=== PATIENT | female | born 2000 | race Caucasian/White ===

== ENCOUNTER 2023-06-19 14:58 | Outpatient (REF) | payer OTHER, SELFPAY | END 2023-06-19 14:59 | disposition home or self-care (01) | LOC: NFLDREF 14:58 | PROVIDERS: PCP Nurse Practitioner Women's Health; Referring Provider Nurse Practitioner Women's Health; Visit Provider Physician Assistant | DX: O99.113 Other diseases of the blood and blood-forming organs and certain disorders involving the immune mechanism complicating pregnancy, third trimester (principal); D69.6 Thrombocytopenia, unspecified; O24.419 Gestational diabetes mellitus in pregnancy, unspecified control; Z3A.36 36 weeks gestation of pregnancy | CPT/HCPCS: 76816; 76819; 87340 ==

== ENCOUNTER 2023-06-20 09:44 | Outpatient (CLI) | payer OTHER, SELFPAY | END 2023-06-20 09:45 | disposition home or self-care (01) | PROVIDERS: PCP Nurse Practitioner Women's Health; Visit Provider Physician Assistant | DX: O99.113 Other diseases of the blood and blood-forming organs and certain disorders involving the immune mechanism complicating pregnancy, third trimester (principal); D69.6 Thrombocytopenia, unspecified; Z3A.36 36 weeks gestation of pregnancy | CPT/HCPCS: 82565; 84450; 84460; 84520; 85384; 85610; 85730 ==

== ENCOUNTER 2023-07-07 16:08 | Inpatient (IN) | payer OTHER, SELFPAY ==
[2023-07-07] VITALS (9 sets, daily range): BP systolic 120–123; BP diastolic 75–81; PULSE 72–96; RESP 16; TEMP 36.4–37.2; O2SAT 97–98; BMI 33.3
[2023-07-07 17:49] LABS: Basophils Absolute Auto 0.02 K/uL (0.00-0.30); Basophils Percent Auto 0.4 % (0.0-3.0); Eosinophils Absolute Auto 0.02 K/uL (0.00-0.50); Eosinophils Percent Auto 0.4 % (0.0-7.0); Hematocrit 34.3 % (33.0-51.0); Hemoglobin* 11.5 gm/dL (12.0-16.0); Immature Granulocytes Abs Auto 0.02 K/uL (0.00-0.30); Immature Granulocytes Pct Auto 0.4 %; Lymphocytes Absolute Auto 1.41 K/uL (0.90-2.90); Mean Corpuscular HGB Conc 34 gm/dL (32-36); Mean Corpuscular Hemoglobin 32 pg (26-34); Mean Corpuscular Volume 95 fL (80-100); Monocytes Percent Auto 6.6 % (0.0-11.0); Neutrophils Absolute Auto 3.59 K/uL (1.7-7.0); Neutrophils Percent Auto 66.2 % (42.0-72.0); Platelet Count* 89 K/uL (140-440); RDW Coefficient of Variation % 14.2 % (11.5-15.5); Red Blood Count 3.63 m/uL (4.00-5.20); White Blood Count* 5.42 K/uL (4.50-11.00)
[2023-07-07 17:50] LABS: Slide Review Reflex No
--- NOTE | 2023-07-07 18:45 | PM.OBHPLI ---
OB - H&P: HPI Labor/Induction History of Present Illness Time Seen by Provider: 18:45 Date Seen: 07/07/23 Chief Complaint: The patient is a 23 year old 3 para 2 at 38w6d gestation by LMP, who presents for induction of labor. is complicated by GDMA1, suspected macrosomia, thrombocytopenia, IVF gestation and gestational carrier status. Patient is feeling well today, no acute concerns. Denies regular/painful uterine contractions, vaginal bleeding or leaking of fluids. Endorses that movement. She is otherwise in her normal state of health. Janeht, her , biological father and his parents are all present for induction. Chief complaint: Maternity Narrative: Janeth Sims is a 23 year old female Specific Issues/Plans 1. Transer OB at 34w5d from [place]. H&P updated 07/03/[address] Watkins. 2. Surrogate, IVF , for a male in [place], Hernando Villagomez will be here for delivery Completed pre implantation genetics: boy! Weekly NSTs starting at 36 weeks 3. History of gestational HTN in 1st ASA 81mg Normal pre-E labs at 12 weeks 4. Gestational diabetes History of gestational diabetes in prior x 2, diet controlled. Early glucose screen was elevated at 150. She initiated glucose monitoring q.i.d. at home for 2 weeks and was having normal readings. They were also normal from 20-22 weeks. Repeat screening at 28 weeks was 146. She resumed q.i.d. remainder of the . 05/23/23: 2 elevated fastings and 15 postprandial elevations. Nutrition consult 06/01/202306/08: Did not bring blood sugar log. Reported fastings are all normal. Reported only 2 elevated post prandials in the past week. Encouraged to bring blood sugar log to each visit Growth ultrasound 05/22/2023: EFW 90% Repeat growth ultrasound at 36 weeks: EFW 3390 g or 7 lb 8 oz (92%), BPD 84%, HC 95%, AC 97%, FL 62%, JACQUI 22.3 cm Patient would like to discuss induction at 39 weeks: Scheduling form filled out. IOL scheduled for 07/08/2023, cervical ripening the night prior. 5. Group B strep detected at new OB. Plan for treatment at delivery (per problem list in records, awaiting UC) Per patient: UTI treated at [facility] for test of cure: Group B strep 6. Thrombocytopenia noted at 28 weeks (per problem list). 32 week CBC showed stable platelets at 102,000. Repeat at 36 weeks: 93,000 06/20/23: 95,000. Normal PT/PTT, normal bun/cr/ast/alt. Fibrinogen normal. Peripheral smear: Moderate thrombocytopenia. No platelet clumping. No circulating blasts. pr/cr ratio ordered, not performed Per anesthesia: If platelets remain stable, they will perform epidural if desired. CBC weekly. Plts 86,000 on 07/03/23 7. Varicella nonimmune vaccination 8. Last Pap, unknown. Pap Tdap: 05/02/23 Flu shot: 06/08/23 RSV: 06/08/23 labs 01/04/23: A positive, negative antibody screen, hemoglobin 11.0, platelets 173,000, rubella immune, RPR nonreactive, hep B surface antibody positive, NO hep B surface antigen, HIV negative, gonorrhea and Chlamydia negative, RPR nonreactive, varicella zoster antibody negative, varicella nonimmune UC: [], hep C negative, TSH 1.8 on 11/19/2022. LAC 06/19/23: negative Hep B surfrace antigen Early 1hr gtt: 150 Twenty-eight week labs 05/02/2023: Hemoglobin 11, 1 hour GTT 146 Imagin. First-trimester ultrasound 12/05/22: living IUP 8w 2 d. BOB 07/15/2023 2. FAS US 03/01/23: posterior placenta, no previa. Normal anatomy. EFW 88% 3. Growth US 05/22/23: EFW 90% Meds Home Medications and Allergies Home Medications Medication Instructions Recorded Confirmed Type aspirin 81 mg chewable tablet 81 mg PO QDAY 06/08/23 07/07/23 History docosahexaenoic acid 200 mg 200 mg PO DAILY PRN 06/08/23 07/07/23 History capsule ( DHA) ferrous sulfate 325 mg (65 mg 325 mg PO QDAY 06/08/23 07/07/23 History iron) tablet (Feosol) Allergies Allergy/AdvReac Type Severity Reaction Status Date / Time No Known Drug Allergies Allergy Verified 07/03/23 14:04 OB - H&P: Exam Physical Exam: Vital signs: Temp Pulse BP Pulse Ox 97.8 F 85 123/81 98 07/07/23 16:41 07/07/23 16:41 07/07/23 16:41 07/07/23 17:05 Narrative: General: Alert and oriented, in no acute distress Psych: Appropriate mood and affect Abdomen: Gravid. EFW 3390g by US on 06/19/23. Cervix: 3/60/-3, Figueroa score 6. FHR: Category 1. Baseline 120bpm, moderate variability, accelerations present, no decelerations [place]: Irregular uterine contractions OB - Results Labs Labs: Short CBC 07/07/23 Range/Units 16:21 WBC 5.42 (4.50-11.00) K/uL Hgb 11.5 L (12.0-16.0) gm/dL Hct 34.3 (33.0-51.0) % Plt Count 89 L (140-440) K/uL OB - Problem Based A/P Additional Plan (1) : Status: Acute (2) Conceived by in vitro fertilization: Status: Acute (3) History of gestational hypertension: Problem details: 1st Status: Acute (4) Thrombocytopenia affecting : Status: Acute (5) Gestational diabetes: Status: Acute Plan Admit to labor and delivery for IOL in the setting of IVF gestation, GDMA1, suspected macrosomia and thrombocytopenia - Start IOL with cook catheter, augment with pitocin in AM - GBS positive at new Ob, plan to ampicillin for GBS prophylaxis - Active T/S and repeat CBC on admission - Notify anesthesia of admission and low platelets given possible regional anesthetic
[2023-07-07] MEDS: LACTATED RINGERS 1000 ML 1,000 ML 125 ML IV (19:40)
[2023-07-07] MEDS: AMPICILLIN 2 GM in 0.9 % SODIUM CHLORIDE Mini-bag 100 ML IVPB (19:43)
[2023-07-07] MEDS: AMPICILLIN 1 GM in 0.9 % SODIUM CHLORIDE Mini-bag 100 ML IVPB (23:45)
[2023-07-08] VITALS (34 sets, daily range): BP systolic 115–160; BP diastolic 56–87; PULSE 57–101; RESP 15–16; TEMP 36.4–37; O2SAT 91–100
[2023-07-08] MEDS: AMPICILLIN 1 GM in 0.9 % SODIUM CHLORIDE Mini-bag 100 ML IVPB ×3 (03:39→13:36)
[2023-07-08] MEDS: OXYTOCIN 30 unit/500 ML in NS 30 UNIT/500 ML BAG IVPB (08:19)
--- NOTE | 2023-07-08 09:36 | PM.OBPNL ---
Subjective Time Seen by Provider: 08:00 Date Seen: 07/08/23 Narrative: The patient is comfortable this morning, sitting in bed. Denies painful contractions. Cook catheter was removed at 0334. On ampicillin for GBS prophylaxis. Fasting BS pending. Objective Exam: General appearance: alert, cooperative,no acute distress Abdomen: soft, gravid, nontender : deferred Extremities: no edema, nontender Vital Signs: Last Vital Signs Temp 97.6 F 07/08/23 08:10 Pulse 101 H 07/08/23 08:01 Resp 16 07/08/23 03:28 BP 120/87 07/08/23 08:01 Pulse Ox 98 07/07/23 17:05 Contractions Monitor mode: External Contraction Frequency: 2-9 minutes Contraction pattern: Irregular Contraction intensity: Mild Pitocin Rate (mU/min): 0 Assessment Assessment: induction ongoing Status: Category l Heart Rate Baseline: 130 Pump Service Supervisor Variability: Moderate (6-25) Monitor Accelerations: Present Monitor Decelerations: None Plan Plan: Start pitocin infusion. Amniotomy when appropriate. Check platelets again 30 minutes prior to epidural (per TOURING PRODUCTION MANAGER recommendation).
--- NOTE | 2023-07-08 14:28 | PM.OBPNL ---
Subjective Time Seen by Provider: 14:28 Date Seen: 07/08/23 Narrative: Patient feeling modeate contractions. Objective Vital Signs: Last Vital Signs Temp 97.8 F 07/08/23 13:35 Pulse 68 07/08/23 13:34 Resp 16 07/08/23 03:28 BP 115/68 07/08/23 13:34 Pulse Ox 98 07/07/23 17:05 Pelvic Exam Dilation (cm): 6 Effacement (%): 85 Station: 0 Contractions Monitor mode: External Contraction pattern: Regular Contraction intensity: Moderate Pitocin Rate (mU/min): 9 Assessment Assessment: induction ongoing Station: 0 Amniotic Membrane Status: AROM (clear fluid) Status: Category l Heart Rate Baseline: 130 Monitor Accelerations: Present Monitor Decelerations: None Plan Plan: Amniotomy performed. CBC now. Epidural prn.
[2023-07-08 14:42] LABS: Basophils Absolute Auto 0.02 K/uL (0.00-0.30); Basophils Percent Auto 0.4 % (0.0-3.0); Eosinophils Absolute Auto 0.03 K/uL (0.00-0.50); Eosinophils Percent Auto 0.5 % (0.0-7.0); Hematocrit 38.5 % (33.0-51.0); Hemoglobin* 12.8 gm/dL (12.0-16.0); Immature Granulocytes Abs Auto 0.06 K/uL (0.00-0.30); Immature Granulocytes Pct Auto 1.1 %; Lymphocytes Absolute Auto 1.49 K/uL (0.90-2.90); Lymphocytes Percent Auto 26.3 % (20-44); Mean Corpuscular HGB Conc 33 gm/dL (32-36); Mean Corpuscular Hemoglobin 32 pg (26-34); Mean Corpuscular Volume 96 fL (80-100); Monocytes Percent Auto 6.9 % (0.0-11.0); Neutrophils Absolute Auto 3.67 K/uL (1.7-7.0); Neutrophils Percent Auto 64.8 % (42.0-72.0); Platelet Count* 103 K/uL (140-440); RDW Coefficient of Variation % 14.1 % (11.5-15.5); Red Blood Count 4.03 m/uL (4.00-5.20); White Blood Count* 5.66 K/uL (4.50-11.00)
[2023-07-08 14:58] LABS: Slide Review Reflex No
[2023-07-08] MEDS: ROPIVACAINE 0.2% 100 ml 100 ML 12 MG EPIDURAL (15:46)
[2023-07-08] MEDS: LIDOCAINE 2% (PF) 5 ML VIAL EPIDURAL (15:46)
[2023-07-08] MEDS: ROPIVACAINE 0.2 % PF 10 ML INJ 20 MG EPIDURAL (15:46)
--- NOTE | 2023-07-08 15:53 | PM.ANBPRC ---
[facility] Medical History History of gestational diabetes ?Z86.32 - Personal history of gestational diabetes (ICD-10) Surgical History History of wisdom tooth extraction ?K08.409 - Partial loss of teeth, unspecified cause, unspecified class (ICD-10) Social History Narrative: Occupation: Daycare aid. Marital status: Significant other. Moravian/cultural needs: no. Chemical or radiation exposure: no. Pre- tobacco use: no. Pre- alcohol use: no. Current tobacco use: no. Current alcohol use: no. Recreational drug use: no. Dietary restrictions: no. Blood transfusion acceptable in an emergency: yes. PSYCHOSOCIAL HISTORY: History of depression or currently depressed: no. Current or past physical, emotional, or sexual mistreatment: no. Problems that will make it hard to make it to appointments: no. What is your current living situation?: I presently have a place to live Problems where you live: no known problems In the past 12 months, utilities in danger of being shut off: no In past 12 months, lack of transportation kept you from medical appts, meetings, work, or getting things needed for daily living: no In the past 12 mos, have been you worried that your food would run out before you had money to buy more?: never true In the past 12 mos, the food you bought just didn't last and you didn't have money to buy more?: never true Smoking Status: Never smoker How often does anyone, including family, friends and others, physically hurt you: never How often does anyone, including family, friends and others, insult or talk down to you: never How often does anyone, including family, friends and others, threaten you with harm: never How often does anyone, including family, friends and others, scream or curse at you: never Little interest or pleasure in doing things: not at all Feeling down, depressed, or hopeless: not at all Meds Home Medications and Allergies Home Medications Medication Instructions Recorded Confirmed Type aspirin 81 mg chewable tablet 81 mg PO QDAY 06/08/23 07/07/23 History docosahexaenoic acid 200 mg 200 mg PO DAILY PRN 06/08/23 07/07/23 History capsule ( DHA) ferrous sulfate 325 mg (65 mg 325 mg PO QDAY 06/08/23 07/07/23 History iron) tablet (Feosol) Allergies Allergy/AdvReac Type Severity Reaction Status Date / Time No Known Drug Allergies Allergy Verified 07/03/23 14:04 Results Labs Labs: Laboratory Results - last 24 hr 07/07/23 07/07/23 07/08/23 16:21 17:21 14:35 WBC 5.42 5.66 RBC 3.63 L 4.03 Hgb 11.5 L 12.8 Hct 34.3 38.5 MCV 95 96 MCH 32 32 MCHC 34 33 RDW Coeff of Bell 14.2 14.1 Plt Count 89 L 103 L Neut % (Auto) 66.2 64.8 Lymph % (Auto) 26.0 26.3 Bibb % (Auto) 6.6 6.9 Eos % (Auto) 0.4 0.5 Baso % (Auto) 0.4 0.4 Neut # (Auto) 3.59 3.67 Lymph # (Auto) 1.41 1.49 Bibb # (Auto) 0.40 0.40 Eos # (Auto) 0.02 0.03 Baso # (Auto) 0.02 0.02 Abs Immat Gran (auto) 0.02 0.06 Imm/Tot Granulo (auto) 0.4 1.1 Blood Type A Positive Antibody Screen NEGATIVE Vital Signs Vital Signs: Last Vital Signs Temp 97.8 F 07/08/23 13:35 Pulse 80 07/08/23 15:53 Resp 16 07/08/23 03:28 BP 139/77 07/08/23 15:53 Pulse Ox 100 07/08/23 15:48 Weight: 77.428 kg Height: 152.4 cm Anesthesia Procedures Epidural Insertion Patient Location: OB Start Time: 15:00 Stop Time: 15:54 Start Date: 07/08/23 Stop Date: 07/08/23 Reason for Block: procedure for pain Patient Position: sitting Performed By: Rachid Gray Preanesthetic Checklist: IV checked, risks and benefits discussed, surgical consent, monitors and equipment checked, pre-op evaluation, timeout performed and anesthesia consent Prep: chlorhexidine gluconate Monitoring: blood pressure monitoring, continuous pulse oximetry and heart rate Approach: midline Vertebral Space: lumbar (1-5) Epidural Technique: ELLIOTT air Needle Type: Tuohy needle Injection Technique: continuous catheter Needle gauge: 17 Needle Length (cm): 10 cm Needle Insertion Depth (cm): 7 Catheter Gauge: 19 Catheter Type: multi-orifice Catheter at skin depth (cm): 13 Test Dose Result: negative and lidocaine 1.5% with epinephrine 1 to 200,000
--- NOTE | 2023-07-08 16:56 | W.PM.OBVAGDE ---
OB Procedure Vag Delivery Mother Details Mother Details: The patient is a 23 year-old, 3, Para 2001, admitted on 07/07/23 at 38 6/7 weeks gestation for cervical ripening and induction of labor for GDMA1. GBS positive, received antibiotic prophylaxis, 5 doses prior to delivery. Good blood sugar control during labor. : 3 Para: 2 Weeks Gestation: 39 Admission Date: 07/07/23 Additional Details Amniotic Membrane Status: AROM Amniotic Membrane Rupture Date: 07/08/23 Amniotic Membrane Rupture Time: 14:26 Amniotic Membrane Fluid Description: Clear Analgesia/Anesthesia Type: Epidural Waterbirth: No Pitcoin: Yes Intrapartal Events: Labor Induction Induction Method: Intracervical balloon catheter Delivery augmentation: rupture of membranes and pitocin Labor Onset: 14:26 Complete: 16:22 Pushin:27 Heart: heart tones during second stage were 120 bpm baseline with variable decelerations to 90s. Delivery Details Delivery Date: 07/08/23 Delivery Time: 16:43 Route of delivery: Gender: Male Viability: Alive; Heart Rate Present Position at Delivery: OA Delivery Details: Delivered over intact perineum via spontaneous vaginal delivery. Infant was placed on maternal abdomen.? Cord was clamped and cut after a 60 second delay. Nose and mouth were bulb suctioned.? Infant weight pending. 1 Minute Interval Total Score: 9 5 Minute Interval Total Score: 9 Additional Details Shoulder Dystocia: No Placenta Delivery Time: 16:49 Placental Delivery Description: Spontaneous Procedure Done: Global Blood Loss: 75 Laceration: None Blood Loss Measurement Type: EBL Bakri Used: No Sponge/Need Count Correct: Yes Cord Vessel Description: 3 Vessels Event Summary Status: Mother and were stable after delivery. Disposition: floor
[2023-07-09 00:27] VITALS: BP 114/78; PULSE 64; RESP 15; TEMP 36.6; O2SAT 96
[2023-07-09 04:48] VITALS: BP 116/75; PULSE 61; RESP 17; TEMP 37.1; O2SAT 97
[2023-07-09] MEDS: IBUPROFEN 600 MG TABLET PO (05:28)
[2023-07-09 07:15] LABS: Hemoglobin* 11.8 gm/dL (12.0-16.0)
[2023-07-09 09:14] VITALS: BP 113/75; PULSE 73; RESP 16; TEMP 36.6; O2SAT 97
[2023-07-09] MEDS: ACETAMINOPHEN 500 MG TABLET 1000 MG PO (09:25)
[2023-07-09] MEDS: DOCUSATE SODIUM 100 MG CAPSULE PO (09:25)
--- NOTE | 2023-07-09 11:19 | PM.OBDSVD1 ---
DS: Providers Provider Time Seen by Provider: 11:20 Date Seen: 07/09/23 Date of admission: 07/07/23 16:08 Primary care physician: RUTH Mejia Admitting Clinician: Janeth Walden MD Attending Physician on discharge: Flavia Watkins MD Date of Discharge: 07/09/23 DS: Diagnosis Discharge Diagnosis (1) Normal vaginal delivery: Status: Acute (2) Gestational diabetes: Status: Acute Exam Const: Vital Signs, click to edit/add: Vital Signs - 24 hr 07/08/23 13:34 07/08/23 13:35 07/08/23 15:33 Temperature 97.8 F Pulse Rate 68 Pulse Rate [Pulse Oximeter] Respiratory Rate Blood Pressure 115/68 Blood Pressure [Ri ght Arm] Pulse Oximetry 100 Oxygen Delivery Mt thod 07/08/23 15:38 07/08/23 15:43 07/08/23 15:44 Temperature Pulse Rate Pulse Rate [Pulse Oximeter] Respiratory Rate Blood Pressure Blood Pressure [Ri ght Arm] Pulse Oximetry 100 100 92 Oxygen Delivery Mt thod 07/08/23 15:48 07/08/23 15:49 07/08/23 15:51 Temperature Pulse Rate 83 84 Pulse Rate [Pulse Oximeter] Respiratory Rate Blood Pressure 160/87 H 130/78 Blood Pressure [Ri ght Arm] Pulse Oximetry [facility] 15:53 07/08/23 15:55 07/08/23 15:57 Temperature Pulse Rate 80 85 82 Pulse Rate [Pulse Oximeter] Respiratory Rate Blood Pressure 139/77 124/68 126/67 Blood Pressure [Ri ght Arm] Pulse Oximetry 100 Oxygen Delivery Mt thod 07/08/23 15:58 07/08/23 16:03 07/08/23 16:04 Temperature Pulse Rate 82 Pulse Rate [Pulse Oximeter] Respiratory Rate Blood Pressure 123/77 Blood Pressure [Ri ght Arm] Pulse Oximetry 100 98 Oxygen Delivery Mt thod 07/08/23 16:08 07/08/23 16:13 07/08/23 16:16 Temperature Pulse Rate Pulse Rate [Pulse Oximeter] Respiratory Rate Blood Pressure Blood Pressure [Ri ght Arm] Pulse Oximetry 98 99 91 [facility] 07/08/23 16:18 07/08/23 16:21 07/08/23 16:35 Temperature Pulse Rate 82 75 Pulse Rate [Pulse Oximeter] Respiratory Rate Blood Pressure 125/78 140/64 H Blood Pressure [Ri ght Arm] Pulse Oximetry 95 94 [facility] 07/08/23 16:51 07/08/23 16:53 07/08/23 17:05 Temperature Pulse Rate 62 72 76 Pulse Rate [Pulse Oximeter] Respiratory Rate Blood Pressure 147/72 H 131/59 L 123/78 Blood Pressure [Ri ght Arm] Pulse Oximetry [facility] 07/08/23 17:20 07/08/23 17:42 07/08/23 17:50 Temperature 98.6 F Pulse Rate 57 L 68 Pulse Rate [Pulse Oximeter] Respiratory Rate Blood Pressure 138/70 119/56 L Blood Pressure [Ri ght Arm] Pulse Oximetry [facility] 07/08/23 18:05 07/08/23 18:20 07/08/23 18:34 Temperature Pulse Rate 64 75 64 Pulse Rate [Pulse Oximeter] Respiratory Rate Blood Pressure 132/69 127/73 126/74 Blood Pressure [Ri ght Arm] Pulse Oximetry [facility] 07/08/23 20:37 07/09/23 00:27 07/09/23 04:48 Temperature 98.0 F 97.8 F 98.8 F Pulse Rate Pulse Rate [Pulse Oximeter] 64 64 61 Respiratory Rate 15 15 17 Blood Pressure Blood Pressure [Ri ght Arm] 123/79 114/78 116/75 Pulse Oximetry 97 96 97 [facility] Room Air Room Air 07/09/23 09:14 Temperature 97.8 F Pulse Rate Pulse Rate [Pulse Oximeter] 73 Respiratory Rate 16 Blood Pressure Blood Pressure [Ri ght Arm] 113/75 Pulse Oximetry 97 Oxygen Delivery Me od Room Air Documenting provider has reviewed patient's vital signs: yes Common normals: no apparent distress and oriented x3 General appearance: cooperative and comfortable HENMT: Common normals: normocephalic Head and scalp: normocephalic Resp: Common normals: normal respiratory effort Cardio: Common normals: regular rate and regular rhythm Rate: regular rate Rhythm: regular rhythm GI: Common normals: soft to palpation and non-tender Inspection: normal to inspection Palpation: soft : Uterus: U/2 and firm Lochia: scant Uterus palpation: uterus nontender Extremity: Common normals: normal to inspection and no pedal edema Neuro: Common normals: oriented x3 Psych: Common normals: affect normal OB - DS: Summary Hospital Course Hospital Course: The patient is a 23 year old G 3 now P 3003(1 surrogacy) that was admitted to the [facility] on 07/07/23 for induction of labor secondary to gestational diabetes. She is a gestational carrier, and biologic parent of the fetus was present for the delivery. The patient had an uncomplicated vaginal delivery. She delivered a viable male . She is breast pumping and plans to do so for 2 months. the patient has done well. Peripartum Data delivery method: Vaginal Laceration description: None complications: none [place] Gender: Male Infant Discharge Plan: Infant to go with biologic father Status at Discharge Functional status at discharge: independent ambulation Overall status at discharge: patient is back to baseline Time Spent with Patient Time attestation: Total time spent providing and/or coordinating discharge services: Time spent: Less than 30 minutes Discharge Plan Discharge Disposition: Home, Self-Care Date of Admission: 07/07/23 16:08 Attending Provider on Discharge: Flavia Watkins Primary Care Provider: Sujatha Shah Condition: Stable Anticipated Discharge Date/Time: 07/09/23 11:29 Discharge Medications: Continued DHA 200 mg capsule 200 mg PO DAILY PRN ferrous sulfate [Feosol] 325 mg (65 mg iron) tablet 325 mg PO QDAY Discontinued aspirin 81 mg tablet,chewable 81 mg PO QDAY Discharge Orders: Discharge Order (Routine); Ordered 07/09/23 Ordered By: Flavia Watkins Patient Education: OB Over the Counter Medication Information, OB Vaginal/Breast Feeding Activity Level: Activity as Tolerated Discharge Diet: Regular Follow Up Appointments: Sujatha Shah, BANQUET STEWARD [Primary Care Provider] - Forms: [employer] Info Instructions
--- NOTE | 2023-07-09 11:49 | PM.ANPOST ---
Post Anesthesia Note Post Anesthesia Note Patient seen: Inpatient Respiratory Status: adequate Cardiovascular Status: adequate Mental Status: baseline Pain: adequate Temp: baseline Anesthetic awareness: N/A Complications: none Follow care: none
[2023-07-10 01:25] LABS: Rapid Plasma Reagin (RPR) Non Reactive (Non Reactive)
== END 2023-07-09 11:40 | disposition home or self-care (01) | DRG 806 ==
PROVIDERS: Obstetrics & Gynecology; Admitting Provider Obstetrics & Gynecology; PCP Nurse Practitioner Women's Health; Visit Provider Obstetrics & Gynecology
DX: O24.420 Gestational diabetes mellitus in childbirth, diet controlled (principal); O99.12 Other diseases of the blood and blood-forming organs and certain disorders involving the immune mechanism complicating childbirth; Z37.0 Single live birth; D69.6 Thrombocytopenia, unspecified; O99.824 Streptococcus B carrier state complicating childbirth; Z33.3 Pregnant state, gestational carrier; Z3A.38 38 weeks gestation of pregnancy
CPT/HCPCS: 01967; 36415; 59200; 85018; 85025; 86592; 86850; 86900; 86901; A9270; C1726; J0290; J2371; J2795; J7120

== ENCOUNTER 2023-10-30 15:22 | Outpatient (CLI) | payer BC, MEDICAID, SELFPAY | END 2023-10-30 15:23 | disposition home or self-care (01) | LOC: NFLDREF 15:23 | PROVIDERS: PCP Nurse Practitioner Women's Health; Visit Provider Obstetrics & Gynecology | DX: Z86.32 Personal history of gestational diabetes (principal) | CPT/HCPCS: 82947 ==

== ENCOUNTER 2024-12-03 09:59 | Outpatient (CLI) | payer BC, SELFPAY ==
--- NOTE | 2024-12-03 10:00 | CRLHL7_ITS ---
For Patients: As a result of the Century Cures Act, medical imaging exams and procedure reports are released immediately into your electronic medical record. You may view this report before your referring provider. If you have questions, please contact your health care provider. Indication: Dating and viability LMP: IVF Technique: Real-time sonographic images of the pelvis were obtained transvaginally using grayscale, color, and Doppler imaging. Comparison: None. Findings: Uterus: Normal. Gestational sac: Mean sac diameter measures 3.1 centimeter. 0.8 x 0.8 x 0.5 centimeter subchorionic hemorrhage inferior to the gestational sac. pole: [place]-rump length measures 2.5 centimeter, compatible with an average ultrasound age of 9 weeks 1 day. Yolk sac: Present. heart rate: 167 beats/min. Right ovary: Size: 2.9 x 1.7 x 2.3 centimeter. Appearance: Normal morphology. No masses. Left ovary: Size: 2.3 x 1.8 x 1.6 centimeter. Appearance: Normal morphology. No masses. Bladder: Visualized bladder is normal. Other: No free fluid. Impression: 1. Single live intrauterine with crown-rump length corresponding to 9 weeks 1 days. 2. 0.8 x 0.8 x 0.5 centimeter subchorionic hemorrhage inferior to the gestational sac. Dictated by Cory Molina MD @ 12/07/2024 11:39:49 AM (Electronically Signed)
== END 2024-12-03 10:00 | disposition home or self-care (01) ==
LOC: US 09:59
PROVIDERS: PCP Nurse Practitioner Women's Health; Visit Provider Midwife
DX: O09.811 Supervision of pregnancy resulting from assisted reproductive technology, first trimester (principal); O20.9 Hemorrhage in early pregnancy, unspecified; Z3A.09 9 weeks gestation of pregnancy
CPT/HCPCS: 76817; 83021; 86592; 86703; 86704; 86706; 86762; 86787; 86803; 86850; 86900; 86901; 87086; 87340

== ENCOUNTER 2024-12-31 11:33 | Outpatient (CLI) | payer BC, MEDICAID, SELFPAY | END 2024-12-31 11:34 | disposition home or self-care (01) | LOC: NFLDREF 01-01 12:05 | PROVIDERS: PCP Nurse Practitioner Women's Health; Referring Provider Nurse Practitioner Women's Health; Visit Provider Advanced Practice Midwife | DX: Z34.82 Encounter for supervision of other normal pregnancy, second trimester (principal) | CPT/HCPCS: 87491; 87591 ==

== ENCOUNTER 2025-02-19 11:28 | Outpatient (CLI) | payer BC, SELFPAY | END 2025-02-19 11:29 | disposition home or self-care (01) | LOC: US 11:28 | PROVIDERS: PCP Nurse Practitioner Women's Health; Visit Provider Midwife | DX: O09.812 Supervision of pregnancy resulting from assisted reproductive technology, second trimester (principal); Z3A.20 20 weeks gestation of pregnancy | CPT/HCPCS: 76811 ==

== ENCOUNTER 2025-04-17 09:34 | Outpatient (CLI) | payer BC, SELFPAY | END 2025-04-17 09:35 | disposition home or self-care (01) | LOC: NFLDREF 04-23 09:02 | PROVIDERS: PCP Nurse Practitioner Women's Health; Referring Provider Nurse Practitioner Women's Health; Visit Provider Advanced Practice Midwife | DX: Z34.93 Encounter for supervision of normal pregnancy, unspecified, third trimester (principal) | CPT/HCPCS: 86780 ==

== ENCOUNTER 2025-04-21 11:57 | Outpatient (CLI) | payer BC, SELFPAY ==
--- NOTE | 2025-04-21 12:15 | CRLHL7_ITS ---
For Patients: As a result of the Century Cures Act, medical imaging exams and procedure reports are released immediately into your electronic medical record. You may view this report before your referring provider. If you have questions, please contact your health care provider. OB ULTRASOUND FOLLOW-UP GROWTH Clinical History: BOB by IVF: 07/06/2025. GA: 29 w, 1 d. Single. Comparison: 02/19/2025, 12/03/2024. INDICATION: Gestational diabetes mellitus. TECHNIQUE: Real time lara scale imaging of the fetus was performed. Transabdominal imaging performed. CERVIX: Not visualized. POSITIONING: Vertex, multiple. AMNIOTIC FLUID: 27.8 cm. JACQUI. 8.2 cm SDP (N: greater than 2 x 1 cm) PLACENTA: Technique: Transabdominal. PLACENTA POSITION: Anterior. DOPPLER: heart rate: 139 bpm. BIOMETRY: BPD: 7.8 cm. 31 w, 2 d, 92.0 percent. HC: 29.4 cm. 32 w, 3 d, 95.9 percent. AC: 27.0 cm. 31 w, 1 d, 92.0 percent. FL: 5.5 cm. 29 w, 1 d, 34.9 percent. FL/AC ratio: 20.46 percent. HC/AC ratio: 1.09. EFW: 1612 g. Weight: 3 lbs, 9 oz. age by this US: 31 w, 0 d. BOB by this US: 06/23/2025. Percentile by BOB: 87.9 percent. IMPRESSION: 1. Sonographic gestational age 31 weeks 0 days and sonographic due date 06/23/2025. Sonographic age is 13 days ahead of the clinical age. 2. Estimated weight 88th percentile. Abdominal circumference 92nd percentile. 3. Amniotic fluid single deepest pocket 8.2 cm. JACQUI 27.8 cm. Julio Huang M.D. Diagnostic Radiologist [facility] [email or web address] SP/Dictated by: Julio Huang MD @ 04/21/2025 3:47:00 PM (Electronically Signed)
== END 2025-04-21 11:58 | disposition home or self-care (01) ==
LOC: US 11:57
PROVIDERS: PCP Nurse Practitioner Women's Health; Visit Provider Advanced Practice Midwife
DX: O24.419 Gestational diabetes mellitus in pregnancy, unspecified control (principal); O36.63X0 Maternal care for excessive fetal growth, third trimester, not applicable or unspecified; Z3A.31 31 weeks gestation of pregnancy
CPT/HCPCS: 76816

== ENCOUNTER 2025-05-05 10:38 | Outpatient (CLI) | payer BC, SELFPAY ==
--- NOTE | 2025-05-05 10:45 | CRLHL7_ITS ---
For Patients: As a result of the Cures Act, medical imaging exams and procedure reports are released immediately into your electronic medical record. You may view this report before your referring provider. If you have questions, please contact your health care provider. OB ULTRASOUND FOLLOW-UP LIMITED CLINICAL HISTORY: Polyhydramnios. COMPARISON: 04/21/2025, 02/19/2025, 12/03/2024. TECHNIQUE: Real time lara scale imaging of the fetus was performed. Transabdominal imaging performed. FINDINGS: BOB by IVF: 07/06/2025. GA: 31 weeks 1 day. Gestation: Single. Cervix: Not visualized. Positioning: Vertex. Amniotic Fluid: 29.7 cm JACQUI. 8.3 cm SDP. Placenta: Technique: TA. Placenta Position: Anterior. Dopplers: Heart Rate: 125 bpm. IMPRESSION: Amniotic fluid single deepest pocket 8.3 cm. JACQUI 29.7 cm. Julio Huang M.D. Diagnostic Radiologist [employer] [email or web address] Transcribed: 3:46 pm DW/Dictated by: Julio Huang MD @ 05/05/2025 12:08:00 PM (Electronically Signed)
== END 2025-05-05 10:39 | disposition home or self-care (01) ==
LOC: US 10:39
PROVIDERS: PCP Nurse Practitioner Women's Health; Visit Provider Advanced Practice Midwife
DX: O40.3XX0 Polyhydramnios, third trimester, not applicable or unspecified (principal); Z3A.31 31 weeks gestation of pregnancy
CPT/HCPCS: 76815